=== PATIENT | male | born 1980 | race Caucasian/White ===

== ENCOUNTER 2017-05-31 19:34 | Emergency (ER) | payer BC, OTHER ==
[~2017-05-31] VITALS: Ht 175.3 cm; Wt 97.0 kg
[2017-05-31 21:04] VITALS: BP 117/68
== END 2017-05-31 21:06 | disposition home or self-care (01) ==
LOC: ER 19:35
DX: Z02.89 Encounter for other administrative examinations (principal); F10.129 Alcohol abuse with intoxication, unspecified; V49.49XA Driver injured in collision with other motor vehicles in traffic accident, initial encounter; Y93.89 Activity, other specified; Y92.410 Unspecified street and highway as the place of occurrence of the external cause; Y99.8 Other external cause status
CPT/HCPCS: 70450; 72125; 99284